=== PATIENT | female | born 1995 | race Caucasian/White ===

== ENCOUNTER 2017-03-21 18:02 | Emergency (ER) | payer OTHER ==
[~2017-03-21] VITALS: Ht 162.6 cm; Wt 80.0 kg
[2017-03-21 18:03] VITALS: BP 124/74; PULSE 78; RESP 18; TEMP 98.2; O2SAT 99
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
[2017-03-21] MEDS ORDERED: SPIR25TA PO (18:23)
[2017-03-21] MEDS ORDERED: METF500T PO (18:23)
[2017-03-21] MEDS ORDERED: VENL25TA PO (18:23)
[2017-03-21] MEDS ORDERED: ACETAMINOPHEN 325 MG TAB PO ONE (18:30)
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
== END 2017-03-21 19:06 | disposition home or self-care (01) ==
LOC: NEPK 18:02
DX: S00.81XA Abrasion of other part of head, initial encounter (principal); M25.571 Pain in right ankle and joints of right foot; M25.511 Pain in right shoulder; M25.561 Pain in right knee; V49.40XA Driver injured in collision with unspecified motor vehicles in traffic accident, initial encounter
CPT/HCPCS: 73610; 99284